=== PATIENT | male | born 1940 | race African-American/Black ===

== ENCOUNTER 2017-01-15 09:56 | Inpatient (IN) | payer MEDICARE, MEDICAID ==
[~2017-01-15] VITALS: Ht 195.6 cm; Wt 122.5 kg
[~2017-01-15 09:56] MED LIST: DIGO250T4 PO; DOCU-138 PO; HYDR-523 PO; LUBI8CAP PO; OCD PO; RAMI5CAP PO; RIVA20TA PO; SIMV10TA6 PO; TIOT18CA3 IH; VALA500T PO; cartia XT PO; proair HFA IH
[2017-01-15 10:43] LABS: INR 1.3; PROTHROMBIN TIME 13.8 sec
[2017-01-15 10:46] LABS: BASOPHILS % 0.4 % (0.0-2.0); DIFFERENTIAL COMMENT 0; EOSINOPHILS % 0.7 % (0.0-5.0); HEMATOCRIT. 35.3 % (42.0-52.0); HEMOGLOBIN. 10.3 g/dL (14.0-18.0); LYMPHOCYTES % 22.8 % (20.0-50.0); MEAN CORPUSCULAR HEMOGLOBIN 21.4 pg (28.0-32.0); MEAN CORPUSCULAR HGB CONC 29.2 g/dL (31.0-37.0); MEAN CORPUSCULAR VOLUME 73.4 fL (80.0-94.0); MONOCYTES % 13.6 % (2.0-8.0); NEUTROPHILS % 62.5 % (40.0-76.0); PLATELET 290 x1000/uL (130-400); RED BLOOD CELL COUNT 4.81 mill/uL (4.7-6.1); RED CELL DISTRIBUTION WIDTH 19.1 % (11.6-14.6)
[2017-01-15 10:49] LABS: ALANINE AMINOTRANSFERASE 16 IU/L (13-61); ALBUMIN 3.6 g/dL (3.4-5.0); ANION GAP 10; CALCIUM 9.5 mg/dL (8.5-10.1); CARBON DIOXIDE 33 mEq/L (21-32); CHLORIDE 104 mEq/L (98-107); INDEX HEMOLYSI 1 (1-3); INDEX ICTERIC 1 (1-4); INDEX LIPEMIC 1 (1-3); UREA NITROGEN BLOOD 9 mg/dL (7-21); eGFR > 60 mL/min (>60)
[2017-01-15 10:52] LABS: NT PRO B-TYPE NATRIURETIC PEP 1354 pg/mL (5-125); TROPONIN I < 0.02 ng/mL (0.00-0.04)
[2017-01-15] MEDS ORDERED: FUROSEMIDE 20MG/2ML VIAL IVP ONE (11:15)
[2017-01-15 19:06] LABS: BG BASE EXCESS 5.2 mmol/L (-2.0-2.0); BG CARBOXYHEMOGLOBIN 0.5 % (0.5-1.5); BG DEOXYHEMOGLOBIN 9.6 % (0.0-5.0); BG FRACTION INSPIRED OXYGEN 21; BG HCO3 ACT 29.9 mmol/L (22.0-26.0); BG METHEMOGLOBIN 0.4 % (0.0-1.5); BG OXYGEN SATURATION 90.3 % (92.0-98.5); BG OXYHEMOGLOBIN 89.5 % (94.0-97.0); BG PCO2 45.1 mmHg (35.0-45.0); BG PO2 60.2 mmHg (75.0-100.0); BG SAMPLE SITE RIGHT RADIAL; BG TOTAL HEMOGLOBIN 10.8 g/dL (12.0-18.0); BG VENT MODE ROOM AIR
[2017-01-15] MEDS ORDERED: DEXTROSE 50% WATER 50ML SYRINGE IV PRN (19:45)
[2017-01-15] MEDS ORDERED: GUAIFENESIN-DM 200MG-20MG/10ML UDC PO PRN (19:45)
[2017-01-15 20:00] VITALS: BP 103/60
[2017-01-15 20:32] VITALS: BP 125/71
[2017-01-15] MEDS: INSULIN LISPRO 100 UNITS/ML SUBCUT SCH (21:00)
[2017-01-15] MEDS: BLOOD SUGAR DIAGNOSTIC STRIP TEST SCH (21:39)
[2017-01-15] MEDS: METHYLPREDNISOLONE SOD SUCC 40 MG/ML VIAL IV SCH (21:40)
[2017-01-15] MEDS: IPRATROPIUM/ALBUTEROL 0.5-3(2.5)MG/3ML NEB HHN SCH (23:54)
[2017-01-16] VITALS: BP 123/71
[2017-01-16 04:00] VITALS: BP 110/65
[2017-01-16] MEDS: IPRATROPIUM/ALBUTEROL 0.5-3(2.5)MG/3ML NEB HHN SCH ×5 (05:24→20:03)
[2017-01-16] MEDS: INSULIN LISPRO 100 UNITS/ML SUBCUT SCH ×5 (06:29→22:02)
[2017-01-16] MEDS: BLOOD SUGAR DIAGNOSTIC STRIP TEST SCH ×4 (06:29→21:07)
[2017-01-16 06:38] LABS: HEMATOCRIT 34.1 % (42.0-52.0); HEMOGLOBIN 10.2 g/dL (14.0-18.0); MEAN CORPUSCULAR HEMOGLOBIN 21.7 pg (28.0-32.0); MEAN CORPUSCULAR HGB CONC 29.8 g/dL (31.0-37.0); MEAN CORPUSCULAR VOLUME 72.7 fL (80.0-94.0); PLATELET 276 x1000/uL (130-400); RED BLOOD CELL COUNT 4.68 mill/uL (4.7-6.1); RED CELL DISTRIBUTION WIDTH 18.9 % (11.6-14.6); WHITE BLOOD COUNT 6.7 x1000/uL (4.5-11.0)
[2017-01-16 07:45] LABS: ANION GAP 12; CALCIUM 9.1 mg/dL (8.5-10.1); CARBON DIOXIDE 29 mEq/L (21-32); CHLORIDE 103 mEq/L (98-107); INDEX HEMOLYSI 1 (1-3); INDEX ICTERIC 1 (1-4); INDEX LIPEMIC 1 (1-3); UREA NITROGEN BLOOD 10 mg/dL (7-21); eGFR > 60 mL/min (>60)
[2017-01-16 07:46] VITALS: BP 121/69
[2017-01-16] MEDS ORDERED: ENOXAPARIN 40MG/0.4ML SYR SUBCUT SCH (09:00)
[2017-01-16] MEDS: METHYLPREDNISOLONE SOD SUCC 40 MG/ML VIAL IV SCH ×2 (09:47→22:01)
[2017-01-16 12:00] VITALS: BP 128/79
[2017-01-16 16:00] VITALS: BP 127/81
[2017-01-16] MEDS ORDERED: HYDROCODONE/ACETAMINOPHEN 5/325MG TABLET PO PRN ×2 (16:15)
[2017-01-16] MEDS ORDERED: LISINOPRIL 5MG TABLET PO SCH (17:30)
[2017-01-16] MEDS ORDERED: ALBUTEROL 6.7GM HFA INHALER ORI PRN (17:30)
[2017-01-16] MEDS ORDERED: NON FORMULARY PATIENT HOME MED EA XX SCH (18:30)
[2017-01-16] MEDS: DIGOXIN 125MCG TABLET PO SCH (18:53)
[2017-01-16] MEDS: LISINOPRIL 5MG TABLET PO SCH (18:53)
[2017-01-16] MEDS: CALCIUM CARBONATE/VITAMIN D3 500MG TABLET PO SCH (18:53)
[2017-01-16] MEDS: DOCUSATE SODIUM 100MG CAPSULE PO SCH (18:53)
[2017-01-16] MEDS: RIVAROXABAN 20 MG TABLET PO SCH (18:53)
[2017-01-16] MEDS: DILTIAZEM HCL 30MG TABLET PO SCH (21:00)
[2017-01-16] MEDS ORDERED: ALBUTEROL 6.7GM HFA INHALER INH SCH (21:00)
[2017-01-16] MEDS ORDERED: ATORVASTATIN CALCIUM 10MG TABLET PO SCH (21:00)
[2017-01-16] MEDS ORDERED: MEDICATION NOT ON FORMULARY EA (Simvastatin 10 MG) PO SCH (21:00)
[2017-01-16] MEDS: LUBIPROSTONE 8 MCG PO SCH (21:00)
[2017-01-16] MEDS: ATORVASTATIN CALCIUM 10MG TABLET PO SCH (22:24)
[2017-01-17] VITALS: BP 107/59
[2017-01-17] MEDS: IPRATROPIUM/ALBUTEROL 0.5-3(2.5)MG/3ML NEB HHN SCH ×6 (00:15→21:10)
[2017-01-17 04:00] VITALS: BP 111/65
[2017-01-17] MEDS: BLOOD SUGAR DIAGNOSTIC STRIP TEST SCH ×4 (06:21→21:00)
[2017-01-17] MEDS: INSULIN LISPRO 100 UNITS/ML SUBCUT SCH ×4 (06:21→22:36)
[2017-01-17 08:00] VITALS: BP 107/65
[2017-01-17] MEDS ORDERED: CALCIUM CARBONATE/VITAMIN D3 500MG TABLET PO SCH (09:00)
[2017-01-17] MEDS: LISINOPRIL 5MG TABLET PO SCH (09:00)
[2017-01-17] MEDS: DILTIAZEM HCL 30MG TABLET PO SCH ×2 (09:00→22:10)
[2017-01-17] MEDS ORDERED: LISINOPRIL 5MG TABLET PO SCH (09:00)
[2017-01-17] MEDS: METHYLPREDNISOLONE SOD SUCC 40 MG/ML VIAL IV SCH ×2 (09:57→22:01)
[2017-01-17] MEDS: DIGOXIN 125MCG TABLET PO SCH (09:57)
[2017-01-17] MEDS: CALCIUM CARBONATE/VITAMIN D3 500MG TABLET PO SCH (09:57)
[2017-01-17] MEDS: DOCUSATE SODIUM 100MG CAPSULE PO SCH ×2 (09:57→16:57)
[2017-01-17 12:00] VITALS: BP 110/63
[2017-01-17 16:00] VITALS: BP 107/63
[2017-01-17] MEDS: RIVAROXABAN 20 MG TABLET PO SCH (16:57)
[2017-01-17] MEDS ORDERED: ALBUTEROL 6.7GM HFA INHALER ORI SCH (17:00)
[2017-01-17 20:00] VITALS: BP 118/82
[2017-01-17] MEDS: LUBIPROSTONE 8 MCG PO SCH (21:00)
[2017-01-17] MEDS: ATORVASTATIN CALCIUM 10MG TABLET PO SCH (22:01)
[2017-01-18] VITALS: BP 108/67
[2017-01-18] MEDS: IPRATROPIUM/ALBUTEROL 0.5-3(2.5)MG/3ML NEB HHN SCH ×6 (00:57→21:03)
[2017-01-18 04:00] VITALS: BP 116/75
[2017-01-18 05:32] LABS: ANION GAP 12; CALCIUM 8.8 mg/dL (8.5-10.1); CARBON DIOXIDE 30 mEq/L (21-32); CHLORIDE 101 mEq/L (98-107); INDEX HEMOLYSI 1 (1-3); INDEX ICTERIC 1 (1-4); INDEX LIPEMIC 1 (1-3); UREA NITROGEN BLOOD 20 mg/dL (7-21); eGFR > 60 mL/min (>60)
[2017-01-18] MEDS: INSULIN LISPRO 100 UNITS/ML SUBCUT SCH ×4 (06:32→21:20)
[2017-01-18] MEDS: BLOOD SUGAR DIAGNOSTIC STRIP TEST SCH ×4 (06:32→21:00)
[2017-01-18 06:41] LABS: HEMATOCRIT. 31.5 % (42.0-52.0); HEMOGLOBIN. 9.2 g/dL (14.0-18.0); MEAN CORPUSCULAR HEMOGLOBIN 21.1 pg (28.0-32.0); MEAN CORPUSCULAR HGB CONC 29.3 g/dL (31.0-37.0); MEAN CORPUSCULAR VOLUME 72.2 fL (80.0-94.0); MEAN PLATELET VOLUME 8.3 fl (7.4-10.4); PLATELET 280 x1000/uL (130-400); RED BLOOD CELL COUNT 4.36 mill/uL (4.7-6.1); RED CELL DISTRIBUTION WIDTH 18.5 % (11.6-14.6); WHITE BLOOD COUNT 16.5 x1000/uL (4.5-11.0)
[2017-01-18 07:24] LABS: DIFFERENTIAL COMMENT 1
[2017-01-18 08:00] VITALS: BP 115/69
[2017-01-18] MEDS: METHYLPREDNISOLONE SOD SUCC 40 MG/ML VIAL IV SCH ×2 (08:35→21:17)
[2017-01-18] MEDS: LISINOPRIL 5MG TABLET PO SCH (08:35)
[2017-01-18] MEDS: DILTIAZEM HCL 30MG TABLET PO SCH ×2 (08:36→21:15)
[2017-01-18] MEDS: CALCIUM CARBONATE/VITAMIN D3 500MG TABLET PO SCH (08:36)
[2017-01-18] MEDS: DOCUSATE SODIUM 100MG CAPSULE PO SCH ×2 (08:36→16:12)
[2017-01-18] MEDS: PREDNISONE 20MG TABLET PO SCH (08:37)
[2017-01-18] MEDS: DIGOXIN 125MCG TABLET PO SCH (08:37)
[2017-01-18 12:00] VITALS: BP 120/70
[2017-01-18 12:03] LABS: PLATELET ESTIMATE NORMAL
[2017-01-18 12:04] LABS: ANISOCYTOSIS 1+
[2017-01-18] MEDS: RIVAROXABAN 20 MG TABLET PO SCH (16:12)
[2017-01-18 16:35] VITALS: BP 119/68
[2017-01-18 20:00] VITALS: BP 115/77
[2017-01-18] MEDS: ATORVASTATIN CALCIUM 10MG TABLET PO SCH (21:16)
[2017-01-18] MEDS: LUBIPROSTONE 8 MCG PO SCH (21:16)
[2017-01-19] VITALS: BP 110/56
[2017-01-19] MEDS: IPRATROPIUM/ALBUTEROL 0.5-3(2.5)MG/3ML NEB HHN SCH ×3 (00:13→09:48)
[2017-01-19 04:00] VITALS: BP 120/67
[2017-01-19 06:37] LABS: HEMATOCRIT. 32.4 % (42.0-52.0); HEMOGLOBIN. 9.5 g/dL (14.0-18.0); MEAN CORPUSCULAR HEMOGLOBIN 21.2 pg (28.0-32.0); MEAN CORPUSCULAR HGB CONC 29.3 g/dL (31.0-37.0); MEAN CORPUSCULAR VOLUME 72.3 fL (80.0-94.0); MEAN PLATELET VOLUME 8.2 fl (7.4-10.4); PLATELET 284 x1000/uL (130-400); RED BLOOD CELL COUNT 4.49 mill/uL (4.7-6.1); RED CELL DISTRIBUTION WIDTH 18.7 % (11.6-14.6)
[2017-01-19] MEDS: INSULIN LISPRO 100 UNITS/ML SUBCUT SCH ×2 (06:40→12:00)
[2017-01-19] MEDS: BLOOD SUGAR DIAGNOSTIC STRIP TEST SCH ×2 (06:41→12:00)
[2017-01-19 07:01] LABS: DIFFERENTIAL COMMENT 1
[2017-01-19 07:27] LABS: ANION GAP 13; CALCIUM 8.8 mg/dL (8.5-10.1); CARBON DIOXIDE 29 mEq/L (21-32); CHLORIDE 100 mEq/L (98-107); INDEX HEMOLYSI 1 (1-3); INDEX ICTERIC 1 (1-4); INDEX LIPEMIC 1 (1-3); UREA NITROGEN BLOOD 22 mg/dL (7-21); eGFR > 60 mL/min (>60)
[2017-01-19 08:00] VITALS: BP 117/69
[2017-01-19] MEDS: PREDNISONE 20MG TABLET PO SCH (08:45)
[2017-01-19] MEDS: DOCUSATE SODIUM 100MG CAPSULE PO SCH (08:47)
[2017-01-19] MEDS: DILTIAZEM HCL 30MG TABLET PO SCH (08:47)
[2017-01-19] MEDS: CALCIUM CARBONATE/VITAMIN D3 500MG TABLET PO SCH (08:48)
[2017-01-19] MEDS: LISINOPRIL 5MG TABLET PO SCH (08:48)
[2017-01-19] MEDS: DIGOXIN 125MCG TABLET PO SCH (08:48)
[2017-01-19 09:48] LABS: HYPOCHROMASIA 1+; PLATELET ESTIMATE NORMAL
[2017-01-19 11:39] LABS: CLARITY URINE CLEAR (CLEAR); COLOR URINE DARK YELLOW (YELLOW); GLUCOSE URINE NEGATIVE (NEGATIVE); KETONES URINE TRACE (NEGATIVE); LEUKOCYTE ESTERASE URINE NEGATIVE (NEGATIVE); NITRITE URINE NEGATIVE (NEGATIVE); OCCULT BLOOD URINE NEGATIVE (NEGATIVE); PH URINE 5.5 (4.5-8.0); PROTEIN URINE NEGATIVE (NEGATIVE); SPECIFIC GRAVITY URINE 1.023 (1.005-1.030)
[2017-01-19 12:00] VITALS: BP 120/73
[2017-01-19 12:26] VITALS: BP 120/73
== END 2017-01-19 16:05 | disposition home or self-care (01) | DRG 140 ==
LOC: ER 11:16 → 8WST 11:46
PROVIDERS: ADMIT Family Medicine Adult Medicine; ATTEND Family Medicine Adult Medicine
DX: J44.1 Chronic obstructive pulmonary disease with (acute) exacerbation (principal); J96.21 Acute and chronic respiratory failure with hypoxia; I50.31 Acute diastolic (congestive) heart failure; E87.3 Alkalosis; D68.59 Other primary thrombophilia; I42.9 Cardiomyopathy, unspecified; I48.2 Chronic atrial fibrillation; Z99.81 Dependence on supplemental oxygen; I11.0 Hypertensive heart disease with heart failure; D72.829 Elevated white blood cell count, unspecified; E78.00 Pure hypercholesterolemia, unspecified; I25.10 Atherosclerotic heart disease of native coronary artery without angina pectoris; D64.9 Anemia, unspecified; E78.5 Hyperlipidemia, unspecified; M19.90 Unspecified osteoarthritis, unspecified site; Z79.01 Long term (current) use of anticoagulants; Z87.891 Personal history of nicotine dependence; Z95.810 Presence of automatic (implantable) cardiac defibrillator; Z98.49 Cataract extraction status, unspecified eye; Z79.899 Other long term (current) drug therapy
CPT/HCPCS: 36415; 36600; 71010; 80048; 80053; 81003; 82375; 82805; 82962; 83880; 84484; 85025; 85027; 85379; 85610; 87040; 87070; 87086; 93005; 94640; 94664; 96374; 97162; 97166; 99285; J1650; J1815; J1940; J2920; J7512; J7611; J7620

== ENCOUNTER → 2017-03-09 | Outpatient (CLI) | payer MEDICARE, MEDICAID ==
[~2017-03-09] MED LIST changes: -RAMI5CAP PO; +RAMI5CAP13 PO; -cartia XT PO
== END | disposition home or self-care (01) ==
LOC: RAD 08:25
PROVIDERS: ATTEND Family Medicine Adult Medicine
DX: I70.0 Atherosclerosis of aorta (principal)
CPT/HCPCS: 71020

== ENCOUNTER → 2017-03-13 | Outpatient (CLI) | payer MEDICARE, MEDICAID ==
[2017-03-13 13:27] LABS: BASOPHILS % 0.6 % (0.0-2.0); EOSINOPHILS % 0.6 % (0.0-5.0); HEMATOCRIT. 33.6 % (42.0-52.0); HEMOGLOBIN. 9.8 g/dL (14.0-18.0); LYMPHOCYTES % 22.6 % (20.0-50.0); MEAN CORPUSCULAR VOLUME 72.2 fL (80.0-94.0); MEAN PLATELET VOLUME 7.6 fl (7.4-10.4); NEUTROPHILS % 64.2 % (40.0-76.0); PLATELET 204 x1000/uL (130-400); RED BLOOD CELL COUNT 4.65 mill/uL (4.7-6.1)
[2017-03-13 13:57] LABS: TOTAL IRON BINDING CAPACITY 430 ug/dL (250-450)
== END | disposition home or self-care (01) ==
LOC: LAB 12:29
PROVIDERS: ATTEND Family Medicine Adult Medicine
DX: D64.9 Anemia, unspecified (principal); R53.83 Other fatigue; R60.9 Edema, unspecified; R06.09 Other forms of dyspnea
CPT/HCPCS: 36415; 83540; 83550; 83880; 85025

== ENCOUNTER → 2018-09-18 | Outpatient (CLI) | payer MEDICARE, MEDICAID | END | disposition home or self-care (01) | LOC: RAD 12:23 | PROVIDERS: ATTEND Specialist | DX: J43.9 Emphysema, unspecified (principal) | CPT/HCPCS: 71045; 93005 ==

== ENCOUNTER 2018-10-01 18:41 | Inpatient (IN) | payer MEDICARE, MEDICAID ==
[~2018-10-01] VITALS: Ht 198.1 cm; Wt 85.7 kg
[2018-10-01] MEDS ORDERED: SODIUM CHLORIDE 0.9% 1,000 ML IV ONE (19:20)
[2018-10-01 20:24] LABS: BASOPHILS % 0.4 % (0.0-2.0); EOSINOPHILS % 1.5 % (0.0-5.0); HEMATOCRIT. 46.2 % (42.0-52.0); HEMOGLOBIN. 15.1 g/dL (14.0-18.0); LYMPHOCYTES % 23.1 % (20.0-50.0); MEAN CORPUSCULAR HEMOGLOBIN 32.1 pg (28.0-32.0); MEAN CORPUSCULAR VOLUME 98.2 fL (80.0-94.0); MEAN PLATELET VOLUME 8.6 fl (7.4-10.4); MONOCYTES % 9.3 % (2.0-8.0); NEUTROPHILS % 65.7 % (40.0-76.0); PLATELET 161 x1000/uL (130-400); RED CELL DISTRIBUTION WIDTH 14.2 % (11.6-14.6)
[2018-10-01 20:25] LABS: CHLORIDE 102 mEq/L (98-107)
[2018-10-01 20:34] LABS: INR 1.1; PROTHROMBIN TIME 11.3 sec (9.1-11.1)
[2018-10-01] MEDS ORDERED: HUMAN PROTHROMBIN COMPLX (PCC) 500 UNITS VIAL IV NR (21:30)
[2018-10-01] MEDS ORDERED: NICARDIPINE 100 MG in SODIUM CHLORIDE 0.9% 60 ML IV PRN (23:45)
[2018-10-01] MEDS ORDERED: MAGNESIUM/ALUMINUM HYDROXIDE/SIMETHICONE 30ML UDC PO PRN (23:45)
[2018-10-01] MEDS ORDERED: DIPHENHYDRAMINE 50MG/ML VIAL IV PRN (23:45)
[2018-10-01] MEDS ORDERED: ONDANSETRON HCL 4MG/2ML INJ IV PRN (23:45)
[2018-10-01] MEDS ORDERED: CLONIDINE 0.1MG TABLET PO PRN (23:45)
[2018-10-01] MEDS ORDERED: ACETAMINOPHEN 325MG TABLET PO PRN (23:45)
[2018-10-02] VITALS (50 sets, daily range): BP systolic 84–156; BP diastolic 30–97
[2018-10-02 00:02] LABS: CLARITY URINE CLEAR (CLEAR); COLOR URINE YELLOW (YELLOW); KETONES URINE TRACE (NEGATIVE); LEUKOCYTE ESTERASE URINE NEGATIVE (NEGATIVE); NITRITE URINE NEGATIVE (NEGATIVE); OCCULT BLOOD URINE NEGATIVE (NEGATIVE); PROTEIN URINE NEGATIVE (NEGATIVE); SPECIFIC GRAVITY URINE 1.022 (1.005-1.030)
[2018-10-02] MEDS: DEXT 5%/LACTATED RINGERS 1,000 ML IV SCH ×2 (00:04→16:30)
[2018-10-02] MEDS ORDERED: LEVETIRACETAM 500MG PREMIX 100 ML IV NR (01:00)
[2018-10-02 05:33] LABS: CHLORIDE 104 mEq/L (98-107)
[2018-10-02 05:36] LABS: BASOPHILS % 0.4 % (0.0-2.0); EOSINOPHILS % 1.7 % (0.0-5.0); HEMATOCRIT. 44.3 % (42.0-52.0); HEMOGLOBIN. 14.6 g/dL (14.0-18.0); LYMPHOCYTES % 33.1 % (20.0-50.0); MEAN CORPUSCULAR HEMOGLOBIN 32.6 pg (28.0-32.0); MEAN CORPUSCULAR VOLUME 99.1 fL (80.0-94.0); MEAN PLATELET VOLUME 8.2 fl (7.4-10.4); MONOCYTES % 10.7 % (2.0-8.0); NEUTROPHILS % 54.1 % (40.0-76.0); PLATELET 147 x1000/uL (130-400); RED BLOOD CELL COUNT 4.47 mill/uL (4.7-6.1); RED CELL DISTRIBUTION WIDTH 14.6 % (11.6-14.6)
[2018-10-02 05:37] LABS: PHOSPHORUS 3.7 mg/dL (2.5-4.9)
[2018-10-02 05:39] LABS: CREATINE KINASE 75 IU/L (39-308)
[2018-10-02 05:42] LABS: CREATINE KINASE MB FRACTION 1.9 ng/mL (0.5-3.6)
[2018-10-02] MEDS: PANTOPRAZOLE 40MG DR TABLET PO SCH (05:55)
[2018-10-02] MEDS: LEVETIRACETAM 500MG in SODIUM CHLORIDE 0.9% 100ML IV SCH ×2 (09:03→21:54)
[2018-10-02 11:15] LABS: BG BASE EXCESS 5.6 mmol/L (-2.0-2.0); BG CARBOXYHEMOGLOBIN 1.1 % (0.5-1.5); BG DEOXYHEMOGLOBIN 5.9 % (0.0-5.0); BG FRACTION INSPIRED OXYGEN 28; BG HCO3 ACT 33.4 mmol/L (22.0-26.0); BG METHEMOGLOBIN 0.4 % (0.0-1.5); BG OXYHEMOGLOBIN 92.6 % (94.0-97.0); BG PCO2 61.9 mmHg (35.0-45.0); BG PO2 74.1 mmHg (75.0-100.0); BG SAMPLE SITE RIGHT RADIAL; BG VENT MODE NASAL CANNULA
[2018-10-02] MEDS: IPRATROPIUM/ALBUTEROL 0.5-3(2.5)MG/3ML NEB HHN SCH ×3 (12:11→21:06)
[2018-10-02 16:47] LABS: CREATINE KINASE 63 IU/L (39-308)
[2018-10-02 16:48] LABS: CREATINE KINASE MB FRACTION 2.2 ng/mL (0.5-3.6)
[2018-10-03] VITALS (42 sets, daily range): BP systolic 115–151; BP diastolic 47–100
[2018-10-03] MEDS: GUAIFENESIN 200MG/10ML SUGAR FREE UDC PO SCH ×5 (00:19→23:34)
[2018-10-03 05:22] LABS: BASOPHILS % 0.8 % (0.0-2.0); EOSINOPHILS % 2.6 % (0.0-5.0); HEMATOCRIT. 45.2 % (42.0-52.0); HEMOGLOBIN. 14.8 g/dL (14.0-18.0); LYMPHOCYTES % 29.7 % (20.0-50.0); MEAN CORPUSCULAR HEMOGLOBIN 32.3 pg (28.0-32.0); MEAN CORPUSCULAR VOLUME 98.9 fL (80.0-94.0); MEAN PLATELET VOLUME 8.5 fl (7.4-10.4); MONOCYTES % 11.3 % (2.0-8.0); NEUTROPHILS % 55.6 % (40.0-76.0); PLATELET 149 x1000/uL (130-400); RED BLOOD CELL COUNT 4.57 mill/uL (4.7-6.1); RED CELL DISTRIBUTION WIDTH 14.4 % (11.6-14.6)
[2018-10-03 05:28] LABS: CHLORIDE 105 mEq/L (98-107)
[2018-10-03 05:36] LABS: PHOSPHORUS 3.8 mg/dL (2.5-4.9)
[2018-10-03 07:50] LABS: *AMPHETAMINES SCREEN URINE NEGATIVE (NEGATIVE); *BARBITURATES SCREEN URINE NEGATIVE (NEGATIVE); *BENZODIAZEPINES SCREEN URINE NEGATIVE (NEGATIVE); *COCAINE SCREEN URINE NEGATIVE (NEGATIVE); METHADONE URINE SCREEN NEGATIVE (NEGATIVE); OPIATES URINE SCREEN NEGATIVE (NEGATIVE)
[2018-10-03 07:51] LABS: CANNABINOID URINE SCREEN NEGATIVE (NEGATIVE); PHENCYCLIDINE URINE SCREEN NEGATIVE (NEGATIVE)
[2018-10-03] MEDS: IPRATROPIUM/ALBUTEROL 0.5-3(2.5)MG/3ML NEB HHN SCH ×4 (07:59→20:28)
[2018-10-03] MEDS: PANTOPRAZOLE 40MG DR TABLET PO SCH (08:38)
[2018-10-03] MEDS: DEXT 5%/LACTATED RINGERS 1,000 ML IV SCH (08:38)
[2018-10-03] MEDS: LEVETIRACETAM 500MG in SODIUM CHLORIDE 0.9% 100ML IV SCH ×2 (09:05→20:17)
[2018-10-04] VITALS (23 sets, daily range): BP systolic 108–155; BP diastolic 55–79
[2018-10-04] MEDS: DEXT 5%/LACTATED RINGERS 1,000 ML IV SCH (01:47)
[2018-10-04 04:34] LABS: BASOPHILS % 0.6 % (0.0-2.0); EOSINOPHILS % 2.2 % (0.0-5.0); HEMATOCRIT. 44.9 % (42.0-52.0); HEMOGLOBIN. 14.6 g/dL (14.0-18.0); LYMPHOCYTES % 22.2 % (20.0-50.0); MEAN CORPUSCULAR HEMOGLOBIN 32.1 pg (28.0-32.0); MEAN CORPUSCULAR VOLUME 98.8 fL (80.0-94.0); MEAN PLATELET VOLUME 8.2 fl (7.4-10.4); MONOCYTES % 11.2 % (2.0-8.0); NEUTROPHILS % 63.8 % (40.0-76.0); PLATELET 145 x1000/uL (130-400); RED BLOOD CELL COUNT 4.55 mill/uL (4.7-6.1); RED CELL DISTRIBUTION WIDTH 14.4 % (11.6-14.6)
[2018-10-04 04:54] LABS: CHLORIDE 103 mEq/L (98-107)
[2018-10-04] MEDS: GUAIFENESIN 200MG/10ML SUGAR FREE UDC PO SCH ×4 (06:06→23:48)
[2018-10-04] MEDS: PANTOPRAZOLE 40MG DR TABLET PO SCH (06:06)
[2018-10-04 07:23] LABS: BG BASE EXCESS 8.1 mmol/L (-2.0-2.0); BG CARBOXYHEMOGLOBIN 1.5 % (0.5-1.5); BG DEOXYHEMOGLOBIN 18.5 % (0.0-5.0); BG FRACTION INSPIRED OXYGEN 21; BG HCO3 ACT 36.7 mmol/L (22.0-26.0); BG METHEMOGLOBIN 0.3 % (0.0-1.5); BG OXYGEN SATURATION 81.2 % (92.0-98.5); BG OXYHEMOGLOBIN 79.7 % (94.0-97.0); BG PCO2 68.4 mmHg (35.0-45.0); BG PH 7.348 (7.350-7.450); BG PO2 45.7 mmHg (75.0-100.0); BG SAMPLE SITE RIGHT RADIAL; BG TOTAL HEMOGLOBIN 15.9 g/dL (12.0-18.0); BG VENT MODE ROOM AIR
[2018-10-04] MEDS: IPRATROPIUM/ALBUTEROL 0.5-3(2.5)MG/3ML NEB HHN SCH ×4 (07:57→20:30)
[2018-10-04] MEDS: LEVETIRACETAM 500MG in SODIUM CHLORIDE 0.9% 100ML IV SCH ×2 (08:42→20:47)
[2018-10-05] VITALS (7 sets, daily range): BP systolic 111–170; BP diastolic 60–131
[2018-10-05] MEDS: IPRATROPIUM/ALBUTEROL 0.5-3(2.5)MG/3ML NEB HHN PRN ×2 (00:49→04:37)
[2018-10-05] MEDS: DEXT 5%/LACTATED RINGERS 1,000 ML IV SCH (03:44)
[2018-10-05] MEDS: PANTOPRAZOLE 40MG DR TABLET PO SCH (05:59)
[2018-10-05] MEDS: GUAIFENESIN 200MG/10ML SUGAR FREE UDC PO SCH ×3 (05:59→18:00)
[2018-10-05 08:03] LABS: BASOPHILS % 0.9 % (0.0-2.0); EOSINOPHILS % 2.7 % (0.0-5.0); HEMATOCRIT. 43.5 % (42.0-52.0); HEMOGLOBIN. 14.1 g/dL (14.0-18.0); LYMPHOCYTES % 30.1 % (20.0-50.0); MEAN CORPUSCULAR HEMOGLOBIN 32.1 pg (28.0-32.0); MEAN CORPUSCULAR VOLUME 98.7 fL (80.0-94.0); MONOCYTES % 12.1 % (2.0-8.0); NEUTROPHILS % 54.2 % (40.0-76.0); PLATELET 134 x1000/uL (130-400); RED BLOOD CELL COUNT 4.41 mill/uL (4.7-6.1)
[2018-10-05] MEDS: IPRATROPIUM/ALBUTEROL 0.5-3(2.5)MG/3ML NEB HHN SCH ×4 (08:46→22:08)
[2018-10-05] MEDS: LEVETIRACETAM 500MG in SODIUM CHLORIDE 0.9% 100ML IV SCH ×2 (08:51→21:28)
[2018-10-05 08:53] LABS: CHLORIDE 103 mEq/L (98-107)
[2018-10-05 09:01] LABS: PHOSPHORUS 2.7 mg/dL (2.5-4.9)
[2018-10-06] VITALS: BP_SYST 117; BP_SYST 120; BP_DIAS 60; BP_DIAS 62
[2018-10-06] MEDS: GUAIFENESIN 200MG/10ML SUGAR FREE UDC PO SCH ×4 (00:23→21:36)
[2018-10-06 04:00] VITALS: BP 125/83
[2018-10-06] MEDS: PANTOPRAZOLE 40MG DR TABLET PO SCH (05:58)
[2018-10-06] MEDS: IPRATROPIUM/ALBUTEROL 0.5-3(2.5)MG/3ML NEB HHN SCH ×4 (09:56→21:23)
[2018-10-06 10:04] LABS: BASOPHILS % 0.9 % (0.0-2.0); EOSINOPHILS % 2.4 % (0.0-5.0); HEMATOCRIT. 46.7 % (42.0-52.0); HEMOGLOBIN. 15.1 g/dL (14.0-18.0); LYMPHOCYTES % 24.8 % (20.0-50.0); MEAN CORPUSCULAR HEMOGLOBIN 31.9 pg (28.0-32.0); MEAN CORPUSCULAR VOLUME 98.7 fL (80.0-94.0); MEAN PLATELET VOLUME 8.1 fl (7.4-10.4); MONOCYTES % 11.8 % (2.0-8.0); NEUTROPHILS % 60.1 % (40.0-76.0); PLATELET 146 x1000/uL (130-400); RED BLOOD CELL COUNT 4.73 mill/uL (4.7-6.1); RED CELL DISTRIBUTION WIDTH 13.8 % (11.6-14.6)
[2018-10-06 10:23] LABS: CHLORIDE 102 mEq/L (98-107)
[2018-10-06] MEDS: LEVETIRACETAM 500MG in SODIUM CHLORIDE 0.9% 100ML IV SCH ×2 (10:48→21:36)
[2018-10-06 12:13] VITALS: BP 141/69
[2018-10-06 20:00] VITALS: BP 95/65
[2018-10-07] VITALS: BP 117/60
[2018-10-07] MEDS: GUAIFENESIN 200MG/10ML SUGAR FREE UDC PO SCH ×3 (00:18→12:24)
[2018-10-07 04:00] VITALS: BP 128/66
[2018-10-07 06:12] LABS: HEMATOCRIT. 43.4 % (42.0-52.0); HEMOGLOBIN. 14.1 g/dL (14.0-18.0); MEAN CORPUSCULAR VOLUME 98.1 fL (80.0-94.0); MEAN PLATELET VOLUME 8.1 fl (7.4-10.4); PLATELET 147 x1000/uL (130-400); RED BLOOD CELL COUNT 4.42 mill/uL (4.7-6.1)
[2018-10-07 07:37] LABS: CHLORIDE 102 mEq/L (98-107)
[2018-10-07 07:50] VITALS: BP 140/76
[2018-10-07] MEDS ORDERED: LEVETIRACETAM 500MG TABLET PO SCH (09:00)
[2018-10-07] MEDS ORDERED: FAMOTIDINE 20MG TABLET PO SCH (09:00)
[2018-10-07 11:43] VITALS: BP 117/74
[2018-10-07 11:53] LABS: PLATELET ESTIMATE NORMAL
[2018-10-07] MEDS: IPRATROPIUM/ALBUTEROL 0.5-3(2.5)MG/3ML NEB HHN SCH (12:34)
[2018-10-07 15:37] VITALS: BP 120/63
[2018-10-07 16:01] VITALS: BP 120/63
== END 2018-10-07 17:30 | disposition home health service (06) | DRG 44 ==
LOC: ER 18:41 → EDBEDREQSVC 21:36 → MICUSO 22:24 → EDBEDREQ 22:40 → EDBEDREQTM 22:40 → ENRESERV 22:42 → 5WST 10-04 11:51
PROVIDERS: ADMIT Internal Medicine Nephrology; ATTEND Internal Medicine Nephrology
DX: I62.9 Nontraumatic intracranial hemorrhage, unspecified (principal); E87.2 Acidosis; J96.11 Chronic respiratory failure with hypoxia; D68.59 Other primary thrombophilia; I42.9 Cardiomyopathy, unspecified; I27.20 Pulmonary hypertension, unspecified; I61.5 Nontraumatic intracerebral hemorrhage, intraventricular; I48.2 Chronic atrial fibrillation; I67.82 Cerebral ischemia; E78.00 Pure hypercholesterolemia, unspecified; J44.9 Chronic obstructive pulmonary disease, unspecified; E78.5 Hyperlipidemia, unspecified; H40.9 Unspecified glaucoma; I11.9 Hypertensive heart disease without heart failure; R13.10 Dysphagia, unspecified; M46.90 Unspecified inflammatory spondylopathy, site unspecified; I25.10 Atherosclerotic heart disease of native coronary artery without angina pectoris; E55.9 Vitamin D deficiency, unspecified; R26.9 Unspecified abnormalities of gait and mobility; I25.2 Old myocardial infarction; Z79.01 Long term (current) use of anticoagulants; Z86.711 Personal history of pulmonary embolism; Z86.73 Personal history of transient ischemic attack (TIA), and cerebral infarction without residual deficits; Z99.81 Dependence on supplemental oxygen; Z87.891 Personal history of nicotine dependence; Z98.41 Cataract extraction status, right eye; Z95.810 Presence of automatic (implantable) cardiac defibrillator
CPT/HCPCS: 36415; 36600; 70496; 71045; 80048; 80305; 82375; 82550; 82553; 82805; 83605; 83735; 83880; 84100; 84484; 92523; 93005; 93306; 93880; 94640; 96360; 97116; 97163; 97166; 97530; 97535; 99291; C9132; G0482; J1953; J7030; J7050; J7620; Q9967